=== PATIENT | female | born 1960 | race Two or more races ===

== ENCOUNTER 2019-11-10 17:53 | Emergency (ER) | payer BC, OTHER ==
[~2019-11-10 17:53] MED LIST: Iopamidol 370 76% 100 ML VIAL ONE
[2019-11-10 19:44] LABS: #Lymphocytes 0.6 thou/uL (1.20-3.40); #Monocytes 0.3 thou/uL (0.11-0.59); #Neutrophils 4.2 thou/uL (1.40-6.50); %Basophils 0.2 % (0.0-1.0); %Eosinophils 0.2 % (0.0-10.0); %Lymphocytes 12.6 % (21.0-51.0); %Monocytes 5.9 % (0.0-10.0); %Neutrophils 81.2 % (42.0-75.0); Hemoglobin 13.7 g/dL (12.0-16.0); Mean Corpuscular HGB CONC 33.3 g/dL (32.0-36.0); Mean Corpuscular Hemoglobin 30.8 pg (27.0-31.0); Mean Corpuscular Volume 92.5 fL (78.0-98.0); Mean Platelet Volume 7.4 fL (7.4-10.4); Platelet Count 261 thou/uL (130-400); RBC Distribution Width 11.6 % (11.5-14.5); Red Blood Cell (RBC) Count 4.44 mill/uL (4.20-5.40); White Blood Cell (WBC) Count 5.1 thou/uL (4.8-10.8)
[2019-11-10] MEDS ORDERED: Famotidine/PF 20 mg/2ml Vial ONE (19:49)
[2019-11-10] MEDS ORDERED: methylPREDNISolone Sod Succ/PF 125 MG/2 ML VIAL ONE (19:49)
[2019-11-10] MEDS ORDERED: diphenhydrAMINE 50 MG/ML VIAL ONE (19:49)
[2019-11-10 20:03] LABS: ALT (SGPT) 7 U/L (8-55); AST (SGOT) 14 U/L (5-34); Albumin 4.4 g/dL (3.5-5.0); Alkaline Phosphatase 57 U/L (40-110); Anion Gap 15 mmol/L (10-20); BUN (Urea Nitrogen) 13 mg/dL (9.8-20.1); Bilirubin, Total 0.4 mg/dL (0.2-1.2); Calc. Creatinine Clearance 0 mL/min (70-130); Calcium 9.9 mg/dL (7.8-10.44); Carbon Dioxide 24 mmol/L (22-29); Chloride 103 mmol/L (98-107); Estimated GFR-MDRD 57; Globulin 2.8 g/dL (2.4-3.5); Glucose 109 mg/dL (70-105); Potassium 4.3 mmol/L (3.5-5.1); Protein, Total 7.2 g/dL (6.0-8.3); Sodium 138 mmol/L (136-145)
--- NOTE | 2019-11-10 21:28 | CT ---
CT arteriogram neck with IV contrast and 3-D imaging CT arteriogram head with IV contrast and 3-D imaging CT brain without and with IV contrast HISTORY: Altered mental status. Sudden diplopia. FINDINGS: There is no evidence of acute intracranial hemorrhage or infarct. The ventricles appear nor mal in size, shape and position. There is no mass effect or shift of midline structures. No abnormal areas of contrast enhancement. Globes have a normal appearance. No orbital masses evident. Normal branching of the great vessels at the aortic arch. Good flow into each carotid and vertebral s ystem. No significant plaque evident. [place] is intact. Good flow into each cerebral and cerebellar system. IMPRESSION : No abnormalities are demonstrated.
== END 2019-11-11 | disposition home or self-care (01) ==
LOC: ERS 17:53
DX: H53.2 Diplopia (principal); R51 Headache; G47.00 Insomnia, unspecified; I10 Essential (primary) hypertension; Z79.899 Other long term (current) drug therapy
CPT/HCPCS: 70496; 70498; 80053; 85025; 85652; 86140; 96374; 96375; J1200; J2930; Q9967; S0028